=== PATIENT | male | born 1965 | race Caucasian/White ===

== ENCOUNTER 2022-07-02 06:21 | Observation (INO) | payer OTHER ==
[2022-06-16 14:53] LABS: Absolute Lymphocytes (CBC) 2.1 K/uL (0.7-4.9); Hematocrit 41.9 % (39.6-49.0); Lymphocytes % 29.4 % (15.3-44.8); MCV 90.8 fL (80-100); MPV 8.9 fL (7.6-11.3); RBC Red Blood Cell Count 4.62 M/uL (4.33-5.43)
[2022-06-16 14:57] LABS: Protime INR 1.09
[2022-06-16 15:03] LABS: Specific Gravity 1.015 (1.005-1.030); Urine Bilirubin NEGATIVE (Negative); Urine Blood Negative (Negative); Urine Clarity Clear (Clear); Urine Color Light-Yellow (Yellow); Urine Glucose NEGATIVE (Negative); Urine Protein NEGATIVE (Negative); Urine Urobilinogen Normal (Normal); Urine pH 6.5 (5.0-7.0)
--- NOTE | 2022-06-16 15:11 | RAD REPORT ---
EXAM DESCRIPTION: Jane Pa And Lat (2 Views)06/16/2022 3:02 pm CLINICAL HISTORY: Renal cancer. Preop exam COMPARISON: None FINDINGS: The lungs appear clear of acute infiltrate. The heart is normal size. Mediastinum and hil a appear unremarkable IMPRESSION: No acute abnormalities displayed
[2022-06-16 15:14] LABS: Albumin 3.7 g/dL (3.4-5.0); Bilirubin Total 0.3 mg/dL (0.2-1.0); Protein, Total 7.1 g/dL (6.4-8.2)
[2022-06-16 15:20] LABS: Potassium 4.1 mmol/L (3.5-5.1)
--- NOTE | 2022-06-18 05:47 | EKG ---
Test Date: 2022-06-16 Test Time: 14:20:26 Sheriff'S Sergeant: IRVIN MEASUREMENT RESULTS: Intervals: Rate: 74 [place]: 120 QRSD: 82 QT: 382 QTc: 424 [place]: P: 61 [place]: 120 QRS: 49 T: 42 INTERPRETIVE STATEMENTS: Normal sinus rhythm Normal ECG No previous ECG available for comparison Electronically Signed On 06-18-22 05:44:53 MATERIALS RESEARCH ENGINEER by Hi Kelley
[2022-07-02] MEDS ORDERED: Ringers Lactate 1,000 ML IV ONE ×3 (06:41→11:42)
[2022-07-02 06:57] LABS: SARS-CoV-2 Antigen Rapid Res Negative (Negative)
[2022-07-02] MEDS ORDERED: propofoL 200 MG/20 ML VIAL IV ONE (06:58)
[2022-07-02] MEDS ORDERED: ROCURONIUM 50 MG/5 ML VIAL IV ONE (06:58)
[2022-07-02] MEDS ORDERED: dexAMETHasone 10 MG/ML VIAL ONE (06:58)
[2022-07-02] MEDS ORDERED: FENTANYL CITR 100 MCG/2 ML ONE ×2 (06:58→09:45)
[2022-07-02] MEDS ORDERED: MIDAZOLAM HCL 2 MG/2 ML INJ ONE (06:59)
[2022-07-02] MEDS ORDERED: LIDOCAINE 2% MPF 5 ML VIAL ONE (06:59)
[2022-07-02] MEDS ORDERED: NS 0.9% VIAL 10 ML ONE ×2 (06:59→09:37)
[2022-07-02] MEDS ORDERED: KETOROLAC 30 MG/ML INJ ONE (06:59)
[2022-07-02] MEDS ORDERED: ONDANSETRON 4 MG/2 ML VIAL ONE (07:00)
[2022-07-02] MEDS ORDERED: VECURONIUM 10 MG/VIAL IV ONE ×2 (07:00→09:38)
[2022-07-02] MEDS: BUPIVACAINE 0.25% PF 30 ML VIAL ONE ×4 (07:22→11:15)
[2022-07-02] MEDS: CEFAZOLIN SODIUM 2 GM/VIAL ONE ×2 (07:22→07:30)
[2022-07-02] MEDS ORDERED: ONDANSETRON 4 MG/2 ML VIAL IV PRN (07:32)
[2022-07-02] MEDS ORDERED: HYDROMORPHONE HCL 0.5 MG/0.5 ML INJ IV PRN (07:32)
[2022-07-02] MEDS: NA CHLORIDE 0.9% 1,000 ML IV SCH ×3 (08:00→20:04)
[2022-07-02] MEDS: MAGNESIUM HYDROXIDE 8% 30 ML PO SCH ×2 (08:00→09:00)
[2022-07-02] MEDS ORDERED: EPHEDRINE SULF 50 MG/ML VIAL ONE (08:20)
[2022-07-02] MEDS ORDERED: Phenylephrine HCl 10 MG/ML 1 ML VIAL ONE (08:21)
[2022-07-02] MEDS ORDERED: NS 0.9% VIAL 30 ML ONE (08:23)
[2022-07-02] MEDS: BISACODYL 10 MG RECTAL SUPP PR SCH (09:00)
[2022-07-02] MEDS ORDERED: HYDROMORPHONE HCL 1 MG/ML INJ ONE (11:19)
[2022-07-02] MEDS ORDERED: GLYCOPYRROLATE 0.2 MG/ML SYR ONE (11:23)
[2022-07-02] MEDS ORDERED: NEOSTIGMINE 1 MG/ML -5 ML ONE (11:23)
[2022-07-02] MEDS: HYDROMORPHONE HCL 1 MG/ML INJ ONE ×2 (11:56→12:10)
--- NOTE | 2022-07-02 12:28 | OP ---
Surgeon: CADEN TELLEZ Preoperative Diagnosis: Left solid enhancing renal mass, clinical stage T1b Postoperative Diagnosis: Left solid enhancing renal mass, clinical stage T1b. Principal Procedure: Left laparoscopic radical nephrectomy. Indication For Procedure: Mr. Griffin presented to the Urology Clinic having undergone imaging with an incidentally observed 6.6 x 7 cm left central enhancing renal mass with a central scar. He was c ounseled about the potential that the mass represents renal cell carcinoma 88% at the time versus an oncocytoma or other benign renal tumor about 12% at the time. He subsequently underwent an MRI, whic h did not see any sign of macroscopic fat and thus he was offered a biopsy if he needed further confi rmation prior to proceeding with radical nephrectomy since the tumor was central and not amenable to a partial nephrectomy. He elected not to proceed with the biopsy and presents today for definitive m anagement of his left renal mass. Procedure In Detail: The patient was consented in the preoperative holding area before being transfe rred to the operative suite where general anesthesia was induced. He was given an OG tube for gastri c decompression. He was also given Ancef 2 g for IV antimicrobial prophylaxis and pneumo boots were provided for DVT prophylaxis. He was placed in the modified flank position with a gel roll beneath h is hips and shoulders and his flank with his left side up and his right side down. An axillary roll was placed beneath his right axilla. He was otherwise padded and secured to the table extensively. Of note, a urethral Cruz catheter was placed during induction of anesthesia by Nursing. His abdomen was shaved, prepped with ChloraPrep and draped in standard fashion. The case was begun after a test roll of the table was performed to ensure he was stable and not moving and secured appropriately. U sing a Veress needle in the umbilicus, the peritoneum was entered and aspiration of the needle and ir rigation using saline confirmed it was in appropriate intraperitoneal location without succus or bloo d identified. As a result, we then connected the insufflation tubing and insufflated his abdomen at low flow and achieved appropriate intraabdominal pressures less than 8 mmHg. High flow was then init iated up to 15 mmHg and his abdomen did distend appropriately. I then placed the trocars in a shifte d position into the left upper quadrant given his large habitus. The upper midline trocar was placed in the midline and the camera port was superolateral to the umbilicus and the left lateral trocar wa s in the left upper quadrant laterally. A 5 mm trocar was in the anterior midline and 12 mm trocars were in the camera port location and in the left lateral quadrant location. The case was begun by di viding the line of Toldt using Endo Zhang followed by LigaSure electrocautery to reflect the colon i n its entirety up to the splenic flexure. The spleen was then reflected and the colon was continuall y reflected off the anterior surface of the kidney until the aorta was visualized. We then identifie d the gonadal vessel and the ureter beneath the tail of Gerota, and we elevated the ureter and begin dissecting and releasing the posterior psoas attachments on the way to the hilum. The renal artery w as identified first beneath the renal vein and was ligated using a YINA stapler with a 45 mm vascular load. Once successfully ligated, the vein was then and identified with an early branch and was then ligated also. Once the hilar vessels had been appropriately ligated, I then continued to e levate the kidney and divided the superomedial attachments and then the anterior attachments beneath the spleen and the pancreas. I then turned my attention to the tail of Gerota where a clip was appli ed on the ureter superiorly and 2 clips inferiorly before dividing the ureter in between using the li gature. I subsequently divided the gonadal vessels and the remainder of the tail of Gerota using the ligature before dividing the remaining lateral attachments until the kidney was completely freed. T he kidney and the mass were significant in size, but did mostly fit within a 15 cm EndoCatch bag. Th is was passed in through the left lateral quadrant trocar site. I then performed Pasha-Lucas cornelio sure using 0 Vicryl suture of each of the 12 mm trocar sites before decreasing the insufflation press ure down to 8 mmHg and surveying the resection site and the hilar vasculature for any sign of bleedin g. With no bleeding noted and the vessels adequately ligated and divided with the stapler, we then i ncreased the pressure back to 15 and removed the 5 mm trocars under vision to assess for any bleeding . When no bleeding was noted, we then desufflated his abdomen and removed the 12 mm trocars, closing the sites using the 0 Vicryl suture pre-placed using the Pasha Lucas device. I then instilled M arcaine subcutaneously in the lower midline and incised this using a 15 blade. The initial incision was only approximately 6-8 cm, but given the size of the mass, I had to extend the incision going to the left lateral side of his umbilicus for a total of about an 8-10 cm incision. This was deepened t hrough the subcutaneous tissues and fat before opening the fascia in the midline and dividing the per itoneum entering the abdominal cavity. I was subsequently able to remove the EndoCatch bag with the left kidney and mass inside of it, and this was sent for pathologic analysis. I then used a looped # 1 PDS to close the lower midline incision in a running fashion. The subcutaneous tissues were irriga cynthia using saline, and then I used 3-0 Vicryl to reapproximate the fat. All of the incision sites wer e then ligated using a 4-0 Monocryl before Dermabond was used to seal the skin. The patient was then taken out of the modified flank position, awakened from general anesthesia, transferred to a stretch er, and then transferred to the recovery in good condition. Complications: None. Discharge Disposition: He will be on postoperative laparoscopic nephrectomy pathway with anticipated discharge tomorrow afternoon. WENDY/ROBERT Voice ID: [id number] Report ID: [id number]
--- NOTE | 2022-07-02 12:58 | OP ---
Surgeon: CADEN TELLEZ Preoperative Diagnosis: Left 6.6 x 7 cm central enhancing and solid renal mass. Postoperative Diagnosis: Left 6.6 x 7 cm central enhancing and solid renal mass. Principal Procedure: Laparoscopic left radical nephrectomy. Indication For Procedure: Mr. Griffin is a 56-year-old gentleman who presented to the Urology Clini c with an incidentally observed left renal mass. Subsequent followup imaging confirmed the presence of the mass without any fat composition macroscopically visible. The patient was offered the opportu errol for a renal biopsy given the central scar observed and the potential that this might represent a n oncocytoma, but ultimately, given the 88% chance that this was renal cell, he elected to proceed di rectly with surgical therapy. Procedure In Detail: The patient was consented in the preoperative holding area before being transfe rred to the operative suite where general anesthesia was induced. An OG tube was placed for gastric decompression and pneumo boots were placed for DVT prophylaxis. He was given Ancef 2 g IV antimicrob ial prophylaxis and pneumo boots were provided for DVT prophylaxis. He was placed in the modified fl ank position with his left side up, padded, and secured to the table appropriately with a gel roll be neath his hips and shoulders in the flank and axillary roll beneath the right axilla. After a test r oll of the bed was performed to ensure the patient was stable and did not move, his abdomen was then prepped with ChloraPrep before being draped in standard fashion. Of note, a urethral Cruz catheter was placed during induction of anesthesia by nursing. With the patient now in the modified flank pos ition, laparoscopic access was obtained by using a Veress needle in the umbilicus and aspiration and irrigation of the needle did confirm the absence of succus or blood, and the fluid did drop indicatin g lack of any back pressure and appropriate intraperitoneal location. We then started with low-flow to confirm pressures remained less than 8, which they did, before increasing the high-flow and disten ding his abdomen to a pressure of 15 mmHg. I then utilized a 5 visual trocar to gain access into his abdomen visually in the anterior midline. Once in the abdominal cavity, the Veress needle was remov ed after confirming there was no intraabdominal injury, and the remaining trocar sites were placed un krishna direct vision, shifted superiorly and left laterally given his habitus and extensive abdominal ca vity. With two 12 mm trocars placed in the superior umbilical region and in the left upper lateral q uadrant, laparoscopic. A laparoscopic resection was then initiated using Endo Zhang to divide the o uter layer of the mesentery of the line of Toldt. The second layer of mesentery was similarly divide d taking care to leave Gerota fascia completely intact. The colon was thus reflected all the way up to the level of the splenic flexure and then the spleen was reflected off the superior and medial rm face of the kidney. The dissection of the colon was continued releasing it off the anterior surface of the kidney until the aorta was visualized. We then elevated the tail of Gerota and identified the ureter, which was similarly elevated. Posterior attachments were divided as we marched toward the h ilum of the kidney. Beneath the main renal vein, the artery was identified first and was ligated usi heidy DICTATION ENDS HERE. WENDY/MODL Voice ID: [id number] Report ID: [id number]
[2022-07-02 13:26] VITALS: BMI 37.6
[2022-07-02] MEDS: HYDROCODONE/APAP 5/325 MG TAB PO PRN (13:29)
[2022-07-02] MEDS: HYDROMORPHONE HCL 1 MG/ML INJ IV PRN ×2 (17:31→23:47)
[2022-07-02] MEDS: TAMSULOSIN 0.4 MG SR CAP PO SCH (20:06)
[2022-07-02 21:39] VITALS: O2SAT 93
[2022-07-03] MEDS: NA CHLORIDE 0.9% 1,000 ML IV SCH ×2 (02:41→10:40)
[2022-07-03 04:38] LABS: Absolute Lymphocytes (CBC) 1.5 K/uL (0.7-4.9); Hematocrit 40.1 % (39.6-49.0); Lymphocytes % 12.5 % (15.3-44.8); MCV 91.4 fL (80-100); MPV 8.6 fL (7.6-11.3); RBC Red Blood Cell Count 4.39 M/uL (4.33-5.43)
[2022-07-03 04:58] LABS: Potassium 4.2 mmol/L (3.5-5.1)
[2022-07-03] MEDS: HYDROCODONE/APAP 5/325 MG TAB PO PRN ×2 (07:31→15:58)
[2022-07-03] MEDS: lisinopriL 10 MG TAB PO SCH (08:58)
[2022-07-03] MEDS: MAGNESIUM HYDROXIDE 8% 30 ML PO SCH (08:58)
[2022-07-03] MEDS: BISACODYL 10 MG RECTAL SUPP PR SCH (09:00)
[2022-07-03] MEDS ORDERED: HYDROCODONE/APAP 5/325 MG TAB PO PRN (09:00)
--- NOTE | 2022-07-03 15:56 | P.PN ---
Subjective Date of Service: 07/03/22 Chief Complaint: POD#1 s/p left lap radical nephrectomy Subjective: Improving abdominal pain with movement. No flatus yet. Had MOM but no suppository. Physical Examination - Vital Signs Temperature: 97.1 F Blood Pressure: 110/59 Pulse: 82 Respirations: 16 Pulse Ox (%): 95 - Physical Exam General: Alert, In no apparent distress, Oriented x3 HEENT: Atraumatic, Mucous membr. moist/pink Respiratory: Normal air movement Gastrointestinal: Soft and benign, Non-distended (appropriately minimally tender in LUQ) Musculoskeletal: No tenderness Integumentary: Other (Incisions C/D/I) Neurological: Normal speech, Normal affect Urinary: Cruz catheter - Studies Laboratory Data (last 24 hrs) 07/03/22 04:12: Sodium 137, Potassium 4.2, BUN 14, Creatinine 1.11, Glucose 123 H 07/03/22 04:12: WBC 11.60 H, Hgb 13.4 L, Hct 40.1, Plt Count 168 Medications List Reviewed: Yes Assessment And Plan - Current Problems (Diagnosis) (1) Left renal mass Current Visit: Yes Status: Acute (2) S/P laparoscopic surgery Current Visit: Yes Status: Acute (3) S/p nephrectomy Current Visit: Yes Status: Acute - Plan 56yo gentleman s/p left lap radical nephrectomy for 7cm Left renal mass doing well. -Dulcolax suppository now -HLIVFs -Ambulate QID -D/c Cruz catheter and check PVR, replace if PVR>void volume -Toradol 15 IV q6 -Union -Regular diet -Likely home this evening once passes flatus Discharge Plan: Home
[2022-07-03] MEDS: KETOROLAC 30 MG/ML INJ IV SCH ×2 (15:58→22:00)
[2022-07-03] MEDS: TAMSULOSIN 0.4 MG SR CAP PO SCH (20:54)
[2022-07-04] MEDS: KETOROLAC 30 MG/ML INJ IV SCH (08:29)
[2022-07-04] MEDS: MAGNESIUM HYDROXIDE 8% 30 ML PO SCH (08:33)
[2022-07-04] MEDS: BISACODYL 10 MG RECTAL SUPP PR SCH (08:34)
[2022-07-04] MEDS: lisinopriL 10 MG TAB PO SCH (08:36)
[2022-07-04 08:37] VITALS: BP 107/60
[2022-07-04 08:47] VITALS: TEMP 97.4
== END 2022-07-04 09:30 | disposition home or self-care (01) ==
LOC: OR 06:21 → 4TH 10:28
PROVIDERS: ADMIT Urology; ATTEND Urology
PROC: 0TT14ZZ Resection of Left Kidney, Percutaneous Endoscopic Approach (ICD-10-PCS; principal; 2022-07-02 07:30)
DX: C64.2 Malignant neoplasm of left kidney, except renal pelvis (principal); N40.1 Benign prostatic hyperplasia with lower urinary tract symptoms; R33.9 Retention of urine, unspecified; I10 Essential (primary) hypertension; K21.9 Gastro-esophageal reflux disease without esophagitis; Z20.822 Contact with and (suspected) exposure to COVID-19
CPT/HCPCS: 50545; 93005; 85025 ×2; 80048; 36415 ×3; 85610; 88307; 81003; 80053; 71046; 94010; 87811; G0379; J2704; J2370; J2001; J2250; J3010 ×2; J1100; A4216 ×3; J1170 ×4; J2710; J7120 ×3; J7030 ×4; J2405; G0378 ×3

== ENCOUNTER 2023-05-18 19:06 | Emergency (ER) | payer OTHER ==
[2023-05-18] MEDS ORDERED: NA CHLORIDE 0.9% 1,000 ML ONE (19:43)
[2023-05-18 19:46] LABS: Absolute Lymphocytes (CBC) 0.8 K/uL (0.7-4.9); Hematocrit 38.7 % (39.6-49.0); Lymphocytes % 6.2 % (15.3-44.8); MCV 91.9 fL (80-100); MPV 8.7 fL (7.6-11.3); Platelets 213 thou/uL (152-406); RBC Red Blood Cell Count 4.21 M/uL (4.33-5.43)
[2023-05-18 20:00] LABS: Potassium 4.5 mEq/L (3.5-5.1)
--- NOTE | 2023-05-18 20:08 | EDPHYS ---
Physician Documentation [facility] Name: Harvey Griffin Age: 57 yrs Sex: Male : 1965 Arrival Date: 05/18/2023 Time: 19:06 Bed 4 Private MD: ED Physician Jluis Vallejo HPI: 05/18 19:20 This 57 yrs old Male presents to ER via EMS with complaints of Syncope. ec2 19:20 Patient arrives today due to concern for syncopal episode. Patient recently had a ec2 urethral procedure today with urology, went home today and subsequently attempted to sit in the bathroom and defecate and subsequently began to feel lightheaded and passed out. Patient reports no chest pain, no shortness of breath, no abdominal pain, no head pain, no neck pain. . 19:22 Additionally patient also reports that he had not eaten or drinking since yesterday ec2 given the procedure this morning.. Historical: - Allergies: 19:09 No Known Allergies; jl7 - Home Meds: 19:09 Lisinopril Oral [Active]; tamsulosin 0.4 mg oral capsule 1 cap daily [Active]; jl7 - PMHx: 19:09 Hypertensive disorder; jl7 - Immunization history:: Adult Immunizations up to date. - Social history:: Smoking status: Patient denies any tobacco usage or history of. ROS: 19:20 Constitutional: as per hpi ec2 Exam: 19:20 Constitutional: GEN: NAD Head: atraumatic Eyes: EOMI Ears: External ears are ec2 normal. CV: Tachycardia LUNGS: no respiratory distress ABD: non-distended, soft, nontender, no guarding, not rigid SKIN: no evidence of rashes MSK: no evidence of trauma NEURO: moves all extremities equally Vital Signs: 19:08 BP 107 / 68; Pulse 120; Resp 20; Temp 98; Pulse Ox 100% ; Weight 122.47 kg; Height 5 jl7 ft. 11 in. ; 19:20 BP 108 / 87; Pulse 108; Resp 16; Pulse Ox 97% on R/A; kd3 20:03 BP 109 / 80; Pulse 94; ec2 20:14 BP 121 / 82; Pulse 83; Resp 16; Pulse Ox 100% on R/A; km8 20:40 BP 123 / 75; Pulse 92; Resp 16; Pulse Ox 96% on R/A; km8 19:08 Body Mass Index 37.66 (122.47 kg, 180.34 cm) jl7 MDM: 19:08 Patient medically screened. ec2 19:20 Data reviewed: vital signs. ED course: Patient arrives today due to concern for ec2 syncopal episode. Examination remarkable for well-appearing nontoxic individual is otherwise in no acute distress he does have slight tachycardia noted on arrival. Will obtain lab work, EKG, give the patient crystalloid. Currently considering process such as arrhythmia, anemia, electrolyte disturbances, dehydration, vasovagal syncope.. 19:28 ED course: EKG independently reviewed and interpreted by me, shows sinus tachycardia, ec2 rate of 107, no acute ST segment elevations, nonconcerning intervals.. 20:03 ED course: Metabolic profile pertinent for renal dysfunction with a creatinine of 1.35 ec2 and a GFR of 62. CBC is remarkable for slight leukocytosis and slight anemia. Of note patient does meet SIRS criteria however have a low clinical suspicion for an acute bacterial infection. I suspect the patient's syncopal episode is likely either vasovagal or secondary to dehydration given the patient's lack of p.o. intake since yesterday given the procedure today. On reassessment patient is well-appearing and in no acute distress. Will discharge home and instructed on continued p.o. intake. Return precautions given. . 05/18 19:20 Order name: Basic Metabolic Panel; Complete Time: 20:02 ec2 05/18 19:20 Order name: CBC with Diff ec2 05/18 20:48 Order name: CBC Smear Scan EDMS 05/18 19:20 Order name: EKG; Complete Time: 19:21 ec2 05/18 19:20 Order name: Cardiac monitoring; Complete Time: 19:28 ec2 05/18 19:20 Order name: EKG - Nurse/Tech; Complete Time: 19:28 ec2 05/18 19:20 Order name: IV Saline Lock; Complete Time: 19:43 ec2 05/18 19:20 Order name: Labs collected and sent; Complete Time: 19:43 ec2 05/18 19:20 Order name: O2 Per Protocol; Complete Time: 19:28 ec2 05/18 19:20 Order name: O2 Sat Monitoring; Complete Time: 19:28 ec2 Administered Medications: 19:43 Drug: NS 0.9% IV 1000 ml IV at 1 bolus Per protocol; 1000 mL bolus Route: IV; Rate: 1 kd3 bolus; Site: right antecubital; 20:54 Follow up: IV Status: Completed infusion; IV Intake: 1000ml km8 Disposition Summary: 05/18/23 20:08 Discharge Ordered Condition: Stable ec2 Diagnosis - Syncope ec2 Discharge Instructions: - Discharge Summary Sheet ec2 - Syncope, [id number] ec2 Forms: - Medication Reconciliation Form ec2 - Thank You Letter ec2 - Antibiotic Education ec2 - Prescription Opioid Use ec2 - Patient Portal Instructions ec2 - Leadership Thank You Letter ec2 Signatures: Dispatcher [employer] Jose Dsouza RN RN jl7 Radha Parada RN RN kd3 Jluis Vallejo MD MD ec2 Cindy Logan RN km8
--- NOTE | 2023-05-18 20:08 | ER ---
Nurse's Notes [facility] Name: Harvey Griffin Age: 57 yrs Sex: Male : 1965 Arrival Date: 05/18/2023 Time: 19:06 Bed 4 Private MD: Diagnosis: Syncope Presentation: 05/18 19:08 Chief complaint: EMS states: SYNCOPE WHILE USING BATHROOM, DC HOME FROM BLADDER LIFT AT jl7 1600. Coronavirus screen: At this time, the client does not indicate any symptoms associated with coronavirus-19. Ebola Screen: No symptoms or risks identified at this time. Initial Sepsis Screen: Does the patient meet any 2 criteria? HR > 90 bpm. No. Patient's initial sepsis screen is negative. Does the patient have a suspected source of infection? No. Patient's initial sepsis screen is negative. Risk Assessment: Do you want to hurt yourself or someone else? Patient reports no desire to harm self or others. Onset of symptoms was May 18, 2023 at 17:00. 19:08 Method Of Arrival: EMS: [facility] 19:08 Acuity: LILI 3 jl7 Triage Assessment: 19:09 General: Appears uncomfortable, Behavior is calm, cooperative, appropriate for age. jl7 Pain: Denies pain. Neuro: Reports a syncopal episode. Historical: - Allergies: 19:09 No Known Allergies; jl7 - Home Meds: 19:09 Lisinopril Oral [Active]; tamsulosin 0.4 mg oral capsule 1 cap daily [Active]; jl7 - PMHx: 19:09 Hypertensive disorder; jl7 - Immunization history:: Adult Immunizations up to date. - Social history:: Smoking status: Patient denies any tobacco usage or history of. Screenin:14 [facility] ED Fall Risk Assessment (Adult) History of falling in the last 3 months, km8 including since admission Yes- single mechanical fall (1 pt) Confusion or Disorientation No (0 pts) Intoxicated or Sedated No (0 pts) Impaired Gait No (0 pts) Mobility Assist Device Used No (0 pt) Altered Elimination No (0 pt) Score/Fall Risk Level 0 - 2 = Low Risk Oriented to surroundings, Maintained a safe environment, Educated pt \T\ family on fall prevention, incl call for assistance when getting out of bed, Assessed \T\ reinforced patient's understanding of fall precautions. Abuse screen: Denies threats or abuse. Denies injuries from another. Nutritional screening: No deficits noted. Tuberculosis screening: No symptoms or risk factors identified. Assessment: 19:20 General: Appears in no apparent distress. Behavior is calm, cooperative. Neuro: Level kd3 of Consciousness is awake, alert, obeys commands, Oriented to person, place, time, situation. Cardiovascular: Rhythm is regular. 20:14 Reassessment: Patient appears in no apparent distress at this time. No changes from km8 previously documented assessment. Patient and/or family updated on plan of care and expected duration. Pain level reassessed. Patient is alert, oriented x 3, equal unlabored respirations, skin warm/dry/pink. Patient states feeling better. Patient states symptoms have improved. Vital Signs: 19:08 BP 107 / 68; Pulse 120; Resp 20; Temp 98; Pulse Ox 100% ; Weight 122.47 kg; Height 5 7 ft. 11 in. ; 19:20 BP 108 / 87; Pulse 108; Resp 16; Pulse Ox 97% on R/A; kd3 20:03 BP 109 / 80; Pulse 94; ec2 20:14 BP 121 / 82; Pulse 83; Resp 16; Pulse Ox 100% on R/A; km8 20:40 BP 123 / 75; Pulse 92; Resp 16; Pulse Ox 96% on R/A; km8 19:08 Body Mass Index 37.66 (122.47 kg, 180.34 cm) 7 ED Course: 19:07 Patient arrived in ED. 7 19:08 Jluis Vallejo MD is Attending Physician. ec2 19:09 Triage completed. jl7 19:09 Arm band placed on. 7 19:13 Radha Parada, MIREILLE is Primary Nurse. kd3 19:43 Inserted saline lock: 20 gauge in right antecubital area, using aseptic technique. kd3 Blood collected. 20:14 Patient has correct armband on for positive identification. Bed in low position. Call km8 light in reach. Side rails up X 1. Client placed on continuous cardiac and pulse oximetry monitoring. NIBP monitoring applied. athletic monitor on. 20:14 No provider procedures requiring assistance completed. Patient maintains SpO2 km8 saturation greater than 95% on room air. 20:16 Provided Education on: d/c teaching. km8 20:53 IV discontinued, intact, bleeding controlled, No redness/swelling at site. Pressure km8 dressing applied. Administered Medications: 19:43 Drug: NS 0.9% IV 1000 ml IV at 1 bolus Per protocol; 1000 mL bolus Route: IV; Rate: 1 kd3 bolus; Site: right antecubital; 20:54 Follow up: IV Status: Completed infusion; IV Intake: 1000ml km8 Medication: 20:14 VIS not applicable for this client. km8 Intake: 20:54 IV: 1000ml; Total: 1000ml. km8 Outcome: 20:08 Discharge ordered by . ec2 20:53 Discharged to home ambulatory, km8 20:53 Condition: good 20:53 Discharge instructions given to patient, Instructed on discharge instructions, follow up and referral plans. Demonstrated understanding of instructions, follow-up care, 20:54 Patient left the ED. km8 Signatures: Jose Holman RN RN jl7 Radha Parada RN RN kd3 Jluis Vallejo MD MD ec2 Cindy Logan RN RN km8 Corrections: (The following items were deleted from the chart) 19:21 19:20 BP 108 / 87; Pulse 84bpm; Resp 16bpm; Pulse Ox 97% RA; kd3 kd3
[2023-05-18 20:48] LABS: Blood Morphology Comment NOT SEEN (NOT SEEN); Platelet Estimate ADEQ; White Blood Cell Scan OK (OK)
[2023-05-18 20:58] VITALS: TEMP 98
[2023-05-18 21:05] VITALS: BP 123/75; O2SAT 96
--- NOTE | 2023-05-22 14:24 | EKG ---
Test Date: 2023-05-18 Test Time: 20:26:32 Commercial Lease Administrator: ALICIA MEASUREMENT RESULTS: Intervals: Rate: 107 [place]: 122 QRSD: 80 QT: 328 QTc: 437 [place]: P: 71 [place]: 122 QRS: 44 T: 50 INTERPRETIVE STATEMENTS: Sinus tachycardia Otherwise normal ECG Compared to ECG 05/13/2023 08:30:20 Sinus rhythm no longer present Electronically Signed On 05-22-23 14:13:39 TOOL AND GAUGE INSPECTOR by Teofilo Gerardo
== END 2023-05-18 20:54 | disposition home or self-care (01) ==
LOC: ER 19:06
DX: R55 Syncope and collapse (principal); I10 Essential (primary) hypertension
CPT/HCPCS: 93005; 85025; 80048; 36415; 96360; 99285; J7030